=== PATIENT | male | born 1955 | race Caucasian/White ===

== ENCOUNTER 2023-01-30 12:49 | Emergency (ER) | payer OTHER ==
[~2023-01-30] VITALS: Ht 175.3 cm; Wt 81.6 kg
[2023-01-30 13:36] LABS: BASOPHILS # (AUTO) 0.04 K/uL (0.00-0.20); BASOPHILS % (AUTO) 0.3 % (0.0-5.0); EOSINOPHILS # (AUTO) 0.01 K/uL (0.00-0.70); EOSINOPHILS % (AUTO) 0.1 % (0.0-8.0); HEMATOCRIT 46.8 % (42-54); IMMATURE GRANULOCYTE ABSOLUTE 0.04 K/uL (0-1); LYMPHOCYTES # (AUTO) 1.7 K/uL (1.0-4.8); MEAN CORPUSCULAR HEMOGLOBIN 31.6 pg (27.0-33.0); MEAN CORPUSCULAR HGB CONC 35.5 g/dL (32.0-36.0); MONOCYTES # (AUTO) 0.8 K/uL (0.1-1.0); MONOCYTES % (AUTO) 6.7 % (3.0-13.0); NEUTROPHILS # (AUTO) 9.4 K/uL (1.8-7.7); NEUTROPHILS % (AUTO) 78.6 % (40.0-77.0); PLATELET COUNT (AUTO) 275 K/uL (130-400); RED BLOOD CELL COUNT(AUTO) 5.26 MIL/uL (4.50-6.20); RED CELL DISTRIBUTION WIDTH 11.8 % (11.0-15.5)
[2023-01-30 14:18] LABS: CREATININE 1.2 mg/dL (0.5-1.5); POTASSIUM 4.2 mmol/L (3.5-5.1)
[2023-01-30 14:25] LABS: ALBUMIN 3.3 g/dL (3.5-5.0); BILIRUBIN,TOTAL 0.8 mg/dL (0.2-1.0); TOTAL PROTEIN, SERUM 7.3 g/dL (6.0-8.3)
[2023-01-30 15:59] LABS: MAGNESIUM 1.7 mg/dL (1.80-2.40)
[2023-01-30 16:57] LABS: INR 0.94 (0.85-1.15)
[2023-01-30 16:59] LABS: PARTIAL THROMBOPLASTIN TIME 26.9 SEC (26.3-35.5)
[2023-01-30] MEDS ORDERED: 0.9%NACL 1000ML 1,000 ML IV ONE (17:00)
[2023-01-30] MEDS ORDERED: IOHEXOL 350 MG/ML 100ML INFUS..BTL IV ONE (18:21)
[2023-01-30] MEDS ORDERED: ASPIRIN 325MG TAB PO ONE (22:30)
[2023-01-30 23:57] VITALS: BP 148/64; PULSE 65; RESP 18; O2SAT 98
== END 2023-01-30 23:57 | disposition short-term general hospital (02) ==
LOC: EDH 12:49
DX: R11.2 Nausea with vomiting, unspecified (principal); R42 Dizziness and giddiness; E11.9 Type 2 diabetes mellitus without complications; I10 Essential (primary) hypertension
CPT/HCPCS: 99285; 70450; 96361; 96360; 71045; 83735; 84484; 80053; 83880; 85025; 85610; 85730; 83605; 36415; 70496; 70498; 93005; Q9967